=== PATIENT | female | born 1965 | race Caucasian/White ===

== ENCOUNTER 2018-04-17 23:42 | Observation (INO) | payer MEDICAID ==
[~2018-04-17] VITALS: Ht 152.4 cm; Wt 65.1 kg
[~2018-04-17 23:42] MED LIST: ASPI81TA23 PO; FERR325T PO; METO25TA3 PO
[2018-04-17 23:55] VITALS: BP 184/96; PULSE 80; RESP 18; TEMP 98.7; O2SAT 98
[2018-04-18] VITALS (9 sets, daily range): BP systolic 127–177; BP diastolic 76–103; PULSE 54–73; RESP 18–20; TEMP 96.6–97.4; O2SAT 95–98
[2018-04-18] MEDS ORDERED: ASPIRIN 81 MG CHEW TAB CHEW ONE
[2018-04-18 00:24] LABS: AUTOMATED NEUTROPHIL # 5.9 TH/MM3 (1.8-7.7); BASOPHIL % 0.3 % (0.0-2.0); EOSINOPHIL # 0.1 TH/MM3 (0-0.4); EOSINOPHIL % 1.7 % (0.0-4.0); HEMATOCRIT 36.2 % (35.0-46.0); LYMPH % 27.9 % (9.0-44.0); LYMPHOCYTE # 2.4 TH/MM3 (1.0-4.8); MEAN CELL VOLUME 78.3 FL (80.0-100.0); MEAN CORPUSCULAR HGB CONC 33.1 % (32.0-36.0); MEAN PLATELET VOLUME 7.1 FL (7.0-11.0); MONO % 4.8 % (0.0-8.0); MONOCYTE # 0.4 TH/MM3 (0-0.9); NEUT % 65.3 % (16.0-70.0); PLATELET COUNT 391 TH/MM3 (150-450); RED BLOOD COUNT 4.62 MIL/MM3 (4.00-5.30); RED CELL DISTRIBUTION WIDTH 20.3 % (11.6-17.2); WHITE BLOOD COUNT 8.8 TH/MM3 (4.0-11.0)
--- NOTE | 2018-04-18 00:25 | RADRPT ---
EXAM DATE: 04/18/2018 12:16 AM EDT AGE/SEX: 52 years / Female INDICATIONS: Mid chest pain. CLINICAL DATA: This is the patient's initial encounter. Patient reports that signs and symptoms have been present for 1 day and indicates a pain score of 7/10. MEDICAL/SURGICAL HISTORY: Hypertension. None. COMPARISON: [facility], CHEST SINGLE AP, 09/05/2016. . FINDINGS: A single AP view of the chest demonstrates the lungs to be symmetrically aerated without evidence of mass, infiltrate or effusion. The cardiomediastinal contours are unremarkable. Osseous structures a re intact. CONCLUSION: No acute cardiopulmonary disease. Electronically signed by: Loyd Noyola MD 04/18/2018 12:24 AM EDT
--- NOTE | 2018-04-18 00:31 | PD ---
HPI . Chest pain Chief Complaint: Chest Pain Time Seen by Provider: 23:57 Travel History International Travel<30 days: No Contact w/Intl Traveler<30days: No Traveled to known affect area: No History of Present Illness HPI Patient presents with chief complaint of chest pain. Onset was 9 PM. It is in the center of her chest. It comes and goes. The pain is mild. Associated symptoms include headache and tingling of her skin. She has a history of hypertension but has not taken her blood pressure medication today. She does not take daily aspirin. PFSH Past Medical History Heart Rhythm Problems: No Cancer: No Cardiac Catheterization: No Cardiovascular Problems: Yes High Cholesterol: No Congestive Heart Failure: No COPD: Yes (DOES NOT WEAR HOME O2) Diabetes: No Diminished Hearing: No Endocrine: No Gastrointestinal Disorders: No Genitourinary: No Heparin Induced Thrombocytopen: No Hypertension: Yes Immune Disorder: No Implanted Vascular Access Dvce: No Musculoskeletal: No Neurologic: No Psychiatric: Yes (r/t greif ) Reproductive: No Respiratory: Yes Immunizations Current: Yes Myocardial Infarction: No Tetanus Vaccination: Unknown Influenza Vaccination: No ?: Unknown LMP: 01/27/18 Menopausal: Yes Tubal Ligation: Yes Past Surgical History Section: Yes (X 3) Coronary Artery Bypass Graft: No Gynecologic Surgery: Yes (C-SECTIONS) Other Surgery: Yes Family History Family Myocardial Infarction: No Social History Alcohol Use: Yes (EVERY DAY) Tobacco Use: Yes (2 PPD) Substance Use: No Allergies-Medications (Allergen,Severity, Reaction): Coded Allergies: No Known Allergies (Verified Adverse Reaction, Unknown, 04/17/18) Reported Meds & Prescriptions Reported Meds & Active Scripts Active Metoprolol Tartrate 25 Mg Tab 12.5 Mg PO Q12HR 30 Days Aspirin EC (Aspirin) 81 Mg Tabdr 81 Mg PO DAILY 30 Days Review of Systems Except as stated in HPI: all other systems reviewed are Neg General / Constitutional: No: Fever, Chills Eyes: No: Blurred Vision HENT: Positive: Headaches Cardiovascular: Positive: Chest Pain or Discomfort Respiratory: No: Shortness of Breath Gastrointestinal: No: Nausea, Vomiting Physical Exam Narrative GENERAL: Awake and alert and in no acute distress. SKIN: warm/dry. Normal color and turgor. HEAD: Normocephalic. Atraumatic. EYES: Pupils equal and round. Extraocular movements are intact. ENT: Mucous membranes pink and moist. NECK: Supple. Full range of motion without pain.. CARDIOVASCULAR: Regular rate and rhythm. Heart sounds normal. RESPIRATORY: No accessory muscle use. Clear to auscultation. Breath sounds equal bilaterally. GASTROINTESTINAL: Abdomen soft. Nontender. Bowel sounds present. Nondistended. MUSCULOSKELETAL: No obvious deformities. Normal muscle tone. NEUROLOGICAL: Awake and alert. No obvious cranial nerve deficits. Motor grossly within normal limits. Normal speech. PSYCHIATRIC: Appropriate mood and affect; insight and judgment normal. Data Data Last Documented VS Vital Signs Date Time Temp Pulse Resp B/P (MAP) Pulse Ox O2 Delivery O2 Flow Rate FiO2 04/18/18 00:45 66 18 177/103 (127) 98 Room Air 04/17/18 23:55 98.7 Orders Orders Electrocardiogram (04/17/18 23:45) Complete Blood Count With Diff (04/17/18 23:45) Basic Metabolic Panel (Bmp) (04/17/18 23:45) Ckmb (Isoenzyme) Profile (04/17/18 23:45) Troponin I (04/17/18 23:45) Chest, Single Ap (04/17/18 23:45) Iv Access Insert/Monitor (04/17/18 23:45) Ecg Monitoring (04/17/18 23:45) Oximetry (04/17/18 23:45) Aspirin Chew (Aspirin Chew) (04/18/18 00:00) Nitroglycerin 2% Oint (Nitroglycerin 2% (04/18/18 00:45) Admit Order (Ed Use Only) (04/18/18 ) Solid Waste Collection Worker / Telemetry [place].Q8H (04/18/18 01:02) Vital Signs (Adult) Q4H (04/18/18 01:02) Diet Npo (04/18/18 Breakfast) Activity Oob With Assistance (04/18/18 01:02) Place In Observation (04/18/18 01:02) Activity Bed Rest With Brp (04/18/18 01:02) Vital Signs (Adult) Q4H (04/18/18 01:02) Cardiac Rhythm .As Directed (04/18/18 01:02) Notify Dr: Other .PRN (04/18/18 01:02) Notify Parameters (04/18/18 01:02) Troponin I (04/18/18 03:15) Troponin I (04/18/18 06:15) Electrocardiogram (04/18/18 03:15) Electrocardiogram (04/18/18 06:15) ^ Obtain (04/18/18 01:02) Sodium Chloride 0.9% Flush (Ns Flush) (04/18/18 01:15) Sodium Chloride 0.9% Flush (Ns Flush) (04/18/18 01:15) Morphine Inj (Morphine Inj) (04/18/18 01:15) Metoprolol Tartrate (Lopressor) (04/18/18 01:15) Nitroglycerin 2% Oint (Nitroglycerin 2% (04/18/18 01:15) Aspirin (Aspirin) (04/18/18 09:00) Solid Waste Collection Worker / Telemetry [place].Q8H (04/18/18 01:02) Labs Laboratory Tests Test 04/18/18 00:15 White Blood Count 8.8 TH/MM3 Red Blood Count 4.62 MIL/MM3 Hemoglobin 12.0 GM/DL Hematocrit 36.2 % Mean Corpuscular Volume 78.3 FL Mean Corpuscular Hemoglobin 26.0 PG Mean Corpuscular Hemoglobin Concent 33.1 % Red Cell Distribution Width 20.3 % Platelet Count 391 TH/MM3 Mean Platelet Volume 7.1 FL Neutrophils (%) (Auto) 65.3 % Lymphocytes (%) (Auto) 27.9 % Monocytes (%) (Auto) 4.8 % Eosinophils (%) (Auto) 1.7 % Basophils (%) (Auto) 0.3 % Neutrophils # (Auto) 5.9 TH/MM3 Lymphocytes # (Auto) 2.4 TH/MM3 Monocytes # (Auto) 0.4 TH/MM3 Eosinophils # (Auto) 0.1 TH/MM3 Basophils # (Auto) 0.0 TH/MM3 CBC Comment DIFF FINAL Differential Comment Blood Urea Nitrogen 8 MG/DL Creatinine 0.71 MG/DL Random Glucose 108 MG/DL Calcium Level 8.7 MG/DL Sodium Level 138 MEQ/L Potassium Level 3.6 MEQ/L Chloride Level 107 MEQ/L Carbon Dioxide Level 21.6 MEQ/L Anion Gap 9 MEQ/L Estimat Glomerular Filtration Rate 87 ML/MIN Total Creatine Kinase 62 U/L Troponin I 0.02 NG/ML MDM Medical Decision Making Medical Screen Exam Complete: Yes Emergency Medical Condition: Yes Medical Record Reviewed: Yes (Patient was evaluated in August 2016 for palpitations associated with elevated troponin. She had a negative nuclear stress test at that time.) Interpretation(s) EKG shows a normal sinus rhythm with no acute ischemic changes. Differential Diagnosis Differential diagnosis of chest pain includes but is not limited to musculoskeletal pain, pulmonary embolism, acute coronary syndrome, pneumonia, pleurisy Narrative Course This is a patient with a history of hypertension and tobacco abuse who presents with chest pain which has been coming and going for the last couple hours. She has been given aspirin. I will place Nitropaste. Assuming a negative initial workup, she will be admitted to the chest pain center for further evaluation. Last Impressions Chest X-Ray 04/17/18 9845 Signed Impressions: CONCLUSION: No acute cardiopulmonary disease. The chest x-ray was independently reviewed by me. CBC & BMP Diagram 04/18/18 00:15 Calcium Level 8.7 Troponin is 0.02. I have discussed admission to the chest pain center for further evaluation. The patient reports that she is agreeable to this plan. Physician Communication Physician Communication Dr. Reza Diagnosis Primary Impression: Chest pain Qualified Codes: R07.9 - Chest pain, unspecified Admitting Information Admitting Physician Requests: Observation Condition: Stable Lita Toro MD Apr 18, 2018 00:31
[2018-04-18 00:34] LABS: CALCIUM 8.7 MG/DL (8.5-10.1)
[2018-04-18 00:35] LABS: BICARBONATE 21.6 MEQ/L (21.0-32.0)
[2018-04-18 00:38] LABS: CREATININE 0.71 MG/DL (0.50-1.00)
[2018-04-18 00:42] LABS: TROPONIN I 0.02 NG/ML (0.02-0.05)
[2018-04-18] MEDS ORDERED: NITROGLYCERIN 2% OINT 1 GM PACKET TOPICAL ONE (00:45)
[2018-04-18] MEDS: NITROGLYCERIN 2% OINT 1 GM PACKET TOP SCH ×2 (01:10→05:42)
[2018-04-18] MEDS: SODIUM CHLORIDE 0.9% FLUSH 10 ML FLUSH IV FLUSH SCH ×2 (01:11→08:44)
[2018-04-18] MEDS ORDERED: SODIUM CHLORIDE 0.9% FLUSH 10 ML FLUSH IV FLUSH PRN (01:15)
[2018-04-18] MEDS ORDERED: MORPHINE SULFATE 4 MG/ML INJ IV PUSH PRN (01:15)
[2018-04-18] MEDS ORDERED: METOPROLOL TARTRATE 25 MG TAB PO SCH (01:15)
[2018-04-18] MEDS ORDERED: ASPIRIN 325 MG TAB PO SCH (09:00)
--- NOTE | 2018-04-18 09:42 | HHI.HP ---
[facility]ician No Primary Care Physician Admission Diagnosis chest pain Diagnoses: (1) Chest pain Diagnosis: Principal Chief Complaint: Chest pain Travel History International Travel<30 Days: No Contact w/Intl Traveler <30 Da: No Traveled to Known Affected Are: No History of Present Illness 52-year-old female with known history of hypertension, chronic tobacco use who presented to the hospital for evaluation of chest pain. Patient states that she is in normal state of health until yesterday when she forgot to take her blood pressure medication and she noticed that her blood pressure was elevated. She laid on the bed in order to try to get her blood pressure to go down, during that time at approximately 11 PM last night she developed midsternal chest discomfort 4/10 on a pain scale that resolved on its own in approximately 30 seconds to a minute. Because of that discomfort she came to emergency department for evaluation. Patient has not had any recurrent chest discomfort. Patient did have workup with negative troponin and EKG showing sinus rhythm without any changes from previous EKGs. Because of patient 's risk factors it was recommended by the ER physician that the patient be observed in the chest pain center for further evaluation and management. It does appears patient has had previous chest pain center workup in August 2016. During that episode patient did undergo myocardial perfusion study which was unremarkable. Currently the patient is asymptomatic. Resting comfortably in bed. Patient does admit that she misses doses of her medications. She has not been evaluated by any outpatient arrow point attacher. She has not had any change in her medical conditions, surgery since her last admission. Review of Systems Cardiovascular: COMPLAINS OF: Chest pain Except as stated in HPI: all other systems reviewed are Neg Past Family Social History Past Medical History Hypertension Past Surgical History x3 Tubal ligation Reported Medications Reported Meds & Active Scripts Active Metoprolol Tartrate 25 Mg Tab 12.5 Mg PO Q12HR 30 Days Aspirin EC (Aspirin) 81 Mg Tabdr 81 Mg PO DAILY 30 Days Allergies: Coded Allergies: No Known Allergies (Verified Allergy, Unknown, 04/18/18) Family History Reviewed and significant for mother from cancer of unknown cancer. Father still alive Social History Patient states that she is down to 1 pack of cigarettes a day, prior to that she smoked 2 pack of cigarettes a day since she was 18 years old. He does drink alcohol 3-4 times weekly. Denies any illicit drug Physical Exam Vital Signs Vital Signs Date Time Temp Pulse Resp B/P (MAP) Pulse Ox O2 Delivery O2 Flow Rate FiO2 04/18/18 07:30 97.2 73 20 157/83 (107) 95 04/18/18 03:15 55 04/18/18 02:50 96.6 54 20 139/85 (103) 97 04/18/18 02:44 62 18 98 04/18/18 02:23 64 18 127/91 (103) 98 Room Air 04/18/18 01:21 66 18 147/93 (111) 98 Room Air 04/18/18 00:45 66 18 177/103 (127) 98 Room Air 04/18/18 00:00 80 98 Room Air 04/18/18 00:00 18 98 Room Air 04/17/18 23:55 98.7 80 18 184/96 (125) 98 Physical Exam GENERAL: Well-developed, well-nourished, in no acute distress. alert and orientated HEENT: Head is normocephalic without any lesions or masses noted. Facial features are symmetric. Eyes: Pupils equal round reactive to light. Extraocular muscles are intact. Conjunctivae were clear. Oropharyngeal: Pharynx without any erythema edema. Tongue is midline without deviation. Buccal mucosa is moist without any masses or lesions NECK: Supple without any masses. Trachea midline no deviation. No JVD, no bruits are appreciated CARDIAC: Regular rhythm, regular rate. S1/S2 are heard. No murmurs gallops or rubs. LUNGS: Clear to auscultation bilaterally. No wheeze, rhonchi or rales. No use of accessory muscles on inspiration or expiration. ABDOMEN: Soft, nontender. Nondistended. Bowel sounds heard in all 4 quadrants. No organomegaly or masses. Negative rebound, negative guarding EXTREMITIES: No edema, pulses are equal bilaterally. No cyanosis or clubbing NEUROLOGY: Mood and affect appear appropriate. Cranial nerves II through XII grossly intact. Muscle strength 5/5 in upper and lower extremities bilaterally. Deep tendon reflexes are 2+ in upper and lower extremities bilaterally. Laboratory Laboratory Tests Test 04/18/18 00:15 04/18/18 03:15 04/18/18 06:05 White Blood Count 8.8 Red Blood Count 4.62 Hemoglobin 12.0 Hematocrit 36.2 Mean Corpuscular Volume 78.3 Mean Corpuscular Hemoglobin 26.0 Mean Corpuscular Hemoglobin Concent 33.1 Red Cell Distribution Width 20.3 Platelet Count 391 Mean Platelet Volume 7.1 Neutrophils (%) (Auto) 65.3 Lymphocytes (%) (Auto) 27.9 Monocytes (%) (Auto) 4.8 Eosinophils (%) (Auto) 1.7 Basophils (%) (Auto) 0.3 Neutrophils # (Auto) 5.9 Lymphocytes # (Auto) 2.4 Monocytes # (Auto) 0.4 Eosinophils # (Auto) 0.1 Basophils # (Auto) 0.0 CBC Comment DIFF FINAL Differential Comment Blood Urea Nitrogen 8 Creatinine 0.71 Random Glucose 108 Calcium Level 8.7 Sodium Level 138 Potassium Level 3.6 Chloride Level 107 Carbon Dioxide Level 21.6 Anion Gap 9 Estimat Glomerular Filtration Rate 87 Total Creatine Kinase 62 Troponin I 0.02 0.02 LESS THAN 0.02 Result Diagram: 04/18/18 0015 04/18/18 0015 Imaging Last Impressions Chest X-Ray 04/17/18 0228 Signed Impressions: CONCLUSION: No acute cardiopulmonary disease. Caprini VTE Risk Assessment Caprini VTE Risk Assessment: No/Low Risk (score <= 1) Caprini Risk Assessment Model Point Value = 1 Point Value = 2 Point Value = 3 Point Value = 5 Age 41-60 Minor surgery BMI > 25 kg/m2 Swollen legs Varicose veins or History of unexplained or recurrent spontaneous Oral contraceptives or hormone replacement Sepsis (< 1 month) Serious lung disease, including pneumonia (< 1 month) Abnormal pulmonary function Acute myocardial infarction Congestive heart failure (< 1 month) History of inflammatory bowel disease Medical patient at bed rest Age 61-74 Arthroscopic surgery Major open surgery (> 45 min) Laparoscopic surgery (> 45 min) Malignancy Confined to bed (> 72 hours) Immobilizing plaster cast Central venous access Age >= 75 History of VTE Family history of VTE Factor V Leiden Prothrombin [id number] Lupus anticoagulant Anticardiolipin antibodies Elevated serum homocysteine Heparin-induced thrombocytopenia Other congenital or acquired thrombophilia Stroke (< 1 month) Elective arthroplasty Hip, pelvis, or leg fracture Acute spinal cord injury (< 1 month) Prophylaxis Regimen Total Risk Factor Score Risk Level Prophylaxis Regimen 0-1 Low Early ambulation 2 Moderate Order ONE of the following: *Sequential Compression Device (SCD) *Heparin 5000 units SQ BID 3-4 Higher Order ONE of the following medications: *Heparin 5000 units SQ TID *Enoxaparin/Lovenox 40 mg SQ daily (WT < 150 kg, CrCl > 30 mL/min) *Enoxaparin/Lovenox 30 mg SQ daily (WT < 150 kg, CrCl > 10-29 mL/min) *Enoxaparin/Lovenox 30 mg SQ BID (WT < 150 kg, CrCl > 30 mL/min) AND/OR *Sequential Compression Device (SCD) 5 or more Highest Order ONE of the following medications: *Heparin 5000 units SQ TID (Preferred with Epidurals) *Enoxaparin/Lovenox 40 mg SQ daily (WT < 150 kg, CrCl > 30 mL/min) *Enoxaparin/Lovenox 30 mg SQ daily (WT < 150 kg, CrCl > 10-29 mL/min) *Enoxaparin/Lovenox 30 mg SQ BID (WT < 150 kg, CrCl > 30 mL/min) AND *Sequential Compression Device (SCD) Assessment and Plan Assessment and Plan Chest pain, atypical -Patient with increased risk factors to include age, hypertension, tobacco use -Patient has been ruled out for acute coronary event with serial cardiac enzymes that have remained negative -Serial EKGs which were reviewed by myself shows sinus rhythm without any changes -Myocardial perfusion study was performed and indicated No reversible perfusion defects to suggest ischemia. -Patient continue on aspirin, beta-agnieszka, nitroglycerin as needed -Patient was monitored on telemetry Hypertension -Home medication metoprolol was continued Chronic tobacco use -Patient counseled on smoking cessation DVT prevention -Low risk, early ambulation Discharge disposition Discharge home in stable condition Activity: Ad corbin. Diet: Healthy heart diet Medication per medication reconciliation Follow-up with primary medical doctor in 1 week Problem Qualifiers (1) Chest pain: Qualified Codes: R07.9 - Chest pain, unspecified Tre Montez Apr 18, 2018 09:42
[2018-04-18] MEDS ORDERED: REGADENOSON INJ 0.4 MG/5 ML SYR IV ONE (10:41)
--- NOTE | 2018-04-18 11:49 | RADRPT ---
EXAM DATE: 04/18/2018 11:30 AM EDT AGE/SEX: 52 years / Female INDICATIONS:Angina. . Midchest pain. CLINICAL DATA: This is the patient's initial encounter. Patient reports that signs and symptoms have been present for 1 day and indicates a pain score of 1/10. MEDICAL/SURGICAL HISTORY: Hypertension. Chronic obstructive pulmonary disease. Tubal ligation. section. COMPARISON: No prior exams available for comparison. DOSE: 8.5 mCi Tc 99m Myoview at rest 25.4 mCi [id number] at stress 0.4 mg Lexiscan STRESS SYMPTOMS: Flushed and heart racing. EJECTION FRACTION: 63 % TECHNIQUE: The patient underwent pharmacologic stress with infusion of prescribed dose. Continuous ECG tracing was monitored during stress. Gated SPECT imaging was performed after stress and conventi onal SPECT imaging was performed at rest. The examination was performed on a SPECT/CT scanner, both attenuation and non-corrected datasets were reviewed. FINDINGS: Distribution: The maximum perfused segment at stress is in the inferior wall. Perfusion Study: The pattern of perfusion at stress is within normal limits. Gated Study: There are intact wall motion and wall thickening without hypokinetic or dyskinetic segm ents. The ejection fraction is calculated at 63%. RISK CATEGORY: Low (<1% Annual Motality Rate) CONCLUSION: 1. No reversible perfusion defects to suggest ischemia. 2. Normal ejection fraction. Electronically signed by: Javier Ayala MD 04/18/2018 11:48 AM EDT
--- NOTE | 2018-04-18 11:53 | HHI.DCPOC ---
Discharge Care Plan Diagnosis: (1) Chest pain Goals to Promote Your Health * To prevent worsening of your condition and complications * To maintain your health at the optimal level Directions to Meet Your Goals Take your medications as prescribed Follow your dietary instruction Follow activity as directed Keep your appointments as scheduled Take your immunizations and boosters as scheduled If your symptoms worsen call your PCP, if no PCP go to Urgent Care Center or Emergency Room Smoking is Dangerous to Your Health. Avoid second hand smoke Call the 24-hour hour crisis hotline for domestic abuse at Tre Montez Apr 18, 2018 11:53
--- NOTE | 2018-04-18 13:36 | EKG ---
Date Performed: 04/18/2018 Time Performed: 06:11:47 PTAGE: 52 years EKG: SINUS BRADYCARDIA BORDERLINE ECG Since PREVIOUS TRACING , no significant change noted PREVIOUS TRACIN04/18/2018 03.30 DOCTOR: Aly Lee Interpretating Date/Time 04/18/2018 13:35:18
--- NOTE | 2018-04-18 14:29 | EKG ---
Date Performed: 04/17/2018 Time Performed: 23:52:24 PTAGE: 52 years EKG: Sinus rhythm POSSIBLE LEFT ATRIAL ENLARGEMENT BORDERLINE ECG Compared to PREVIOUS TRACING , left atrial abnormality is new. PREVIOUS TRACIN09/06/2016 10.19 DOCTOR: Aly Lee Interpretating Date/Time 04/18/2018 14:28:44
--- NOTE | 2018-04-18 14:30 | EKG ---
Date Performed: 04/18/2018 Time Performed: 03:30:41 PTAGE: 52 years EKG: SINUS BRADYCARDIA BORDERLINE ECG Left atrial abnormality absent compared to previous. PREVIOUS TRACING : 04/17/2018 23.52 DOCTOR: Aly Lee Interpretating Date/Time 04/18/2018 14:29:11
--- NOTE | 2018-04-18 16:25 | TR ---
Date Performed: 04/18/2018 Time Performed: 10:59:28 DOCTOR: Willis Fajardo DRUG LIST: CLINICAL HISTORY: CHEST PAIN REASON FOR TEST: Chest pain REASON FOR ENDING: OBSERVATION: CONCLUSION: Lexiscan stress test was performed under standard four minute protocol. Radionuclide was injected one minute prior to ending the test. Some NS STT changes seen but No electrocardiograph ic abormalities were present diagnostic of ischemia. Nuclear imaging and interpretation are pending. COMMENTS: results pending
== END 2018-04-18 12:20 | disposition home or self-care (01) ==
LOC: PHED 23:42 → PHEDA 04-18 01:07 → PH3A 04-18 02:36
PROVIDERS: ADMIT Hospitalist; ATTEND Hospitalist
DX: R07.9 Chest pain, unspecified (principal); I10 Essential (primary) hypertension; F17.200 Nicotine dependence, unspecified, uncomplicated; R51 Headache; R20.2 Paresthesia of skin; Z79.899 Other long term (current) drug therapy; R00.1 Bradycardia, unspecified; R94.31 Abnormal electrocardiogram [ECG] [EKG]
CPT/HCPCS: 71045; 78452; 80048; 82550; 84484; 85025; 93005; 93017; 99285; A9502; G0378; J2785